=== PATIENT | female | born 1955 | race Caucasian/White ===

== ENCOUNTER 2017-07-02 10:07 | Day surgery (SDC) | payer OTHER ==
[2017-07-02] MEDS ORDERED: LR 1,000 ML IV ONE (10:23)
[2017-07-02] MEDS ORDERED: LIDOCAINE 1% 2 ML INJ ID PRN (10:23)
[2017-07-02 10:45] VITALS: PULSE 89
[2017-07-02] MEDS ORDERED: PROPOFOL/EMULSION 500 MG/50 ML BOTTLE IV ONE (11:40)
--- NOTE | 2017-07-02 11:41 | PDANEPAE ---
ANE History of Present Illness 8 year old female for upper and lower endoscopy (EGD & Colonoscopy). ANE Past Medical History - Cardiovascular History Hx Hypertension: No Hx Arrhythmias: No Hx Chest Pain: No Hx Coronary Artery / Peripheral Vascular Disease: No Hx CHF / Valvular Disease: No Hx Palpitations: No - Pulmonary History Hx COPD: No Hx Asthma/Reactive Airway Disease: No Hx Recent Upper Respiratory Infection: No Hx Oxygen in Use at Home: No Hx Sleep Apnea: No Sleep Apnea Screening Result - Last Documented: Negative - Neurologic History Hx Cerebrovascular Accident: No Hx Seizures: No Hx Dementia: No - Endocrine History Hx Diabetes: No Hypothyroid: No Hyperthyroid: No Obesity: no - Renal History Hx Renal Disorders: No - Liver History Hx Hepatic Disorders: No - Neurological & Psychiatric Hx Hx Neurological and Psychiatric Disorders: No - Cancer History Hx Cancer: Yes Cancer History Comment: breast ca with radiation oct 2015 - Congenital Disorder History Hx Congenital Disorders: No - GI History GERD: no Hx Gastrointestinal Disorders: No Gastrointestinal History Comment: hx of colonoscopies - Other Health History Other Health History: none - Chronic Pain History Chronic Pain: No - Surgical History Prior Surgeries: right breast bx 09/25/12 with nicolas. 10/2015 right breast lumpectomy at [place] with nicolas MICHAELS Review of Systems Review of Systems: - Exercise capacity Exercise capacity: >=4 METS METS (RN): 5 METS ANE Patient History - Allergies Allergies/Adverse Reactions: Penicillins Allergy (Verified 09/04/12 12:56) Rash - Home Medications Home Medications: Arimidex 1 mg (*) 05/15/16 [Last Taken 07/01/17] VITAMIN D 05/15/16 [Last Taken 06/25/17] - NPO status NPO Status: no food or drink >8 hours NPO Since - Liquids (Date): 07/02/17 NPO Since - Liquids (Time): 00:00 NPO Since - Solids (Date): 07/01/17 NPO Since - Solids (Time): 09:00 - Anes Hx Anes Hx: no prior problems - Smoking Hx Smoking Status: Never smoked Marijuana use: No - Alcohol Use Alcohol Use: Rarely - Family Anes Hx Family Anes Hx: neg - N/A Family Hx Anesthesia Complications: none ANE Labs/Vital Signs - Vital Signs Vital Signs: reviewed preoperatively; see RN documention for details Blood Pressure: 126/74 Heart Rate: 89 Respiratory Rate: 12 O2 Sat (%): 97 Height: 177.8 cm Weight: 81.647 kg ANE Physical Exam - Airway Neck exam: FROM Mallampati Score: Class 1 Mouth exam: normal dental/mouth exam - Pulmonary Pulmonary: no respiratory distress - Cardiovascular Cardiovascular: regular rate and rhythym - ASA Status ASA Status: II ANE Anesthesia Plan Anesthesia Plan: GA with mask Total IV Anesthesia: Yes
--- NOTE | 2017-07-02 11:54 | PDGENHP ---
History & Physical Chief Complaint: iron def anemia History of Present Illness: 62 year old female present for evaluation of iron def anemia. has history of complex hepatic flexure polyp Pertinent Past, Social, Family History: PMHx: BC Relevant Physical Exam: HEENT: anicteric. CV: RRR +s1s2. Lungs CTAB. Abd: soft, nt, + bs Cardiorespiratory Assessment: ASA 2
[2017-07-02] MEDS ORDERED: NALOXONE HCL 0.4 MG/ML INJ IVP PRN (12:03)
[2017-07-02] MEDS ORDERED: ONDANSETRON 4 MG/2 ML VIAL IVP PRN (12:03)
[2017-07-02] MEDS ORDERED: LR 500 ML IV PRN (12:03)
[2017-07-02] MEDS ORDERED: fentaNYL 100 MCG/2 ML INJ IVP PRN (12:03)
--- NOTE | 2017-07-02 12:39 | GIREPORT ---
[facility] - Endoscopy Department Patient Name: Lyndsey Montejo Procedure Date: 07/02/2017 11:35 AM Patient Type: Outpatient Attending / ER Physician: Ruben Romero MD Procedure: Upper GI endoscopy Indications: Iron deficiency anemia Patient Profile: 62 year old female presents for evaluation of iron deficiency anemia. Providers: Ruben Romero MD Medicines: Monitored Anesthesia Care Complications: No immediate complications. Estimated blood loss: Minimal. Description of Procedure: After obtaining informed consent, the endoscope was passed under direct vision. Throughout the procedure, the patient's blood pressure, pulse, and oxygen saturations were monitored continuously. The Endoscope was intro duced through the mouth, and advanced to the second part of duodenum. The [facility] er GI endoscopy was accomplished without difficulty. The patient tolerated th e procedure well. Findings: The examined esophagus was normal. A small hiatal hernia was present. Patchy mildly erythematous mucosa without bleeding was found in the gastric body and in the bacilio abdulkadir antrum. Biopsies were taken with a cold forceps for histology. The examined duodenum was normal. Biopsies for histology were taken with a cold forceps for evaluation of celiac disease. Estimated Blood Loss: Estimated blood loss was minimal. Post Op Diagnosis: - Normal esophagus. - Small hiatal hernia. - Erythematous mucosa in the gastric body and antrum. Biopsied. - Normal examined duodenum. Biopsied. - Etiology? No cause of iron deficiency anemia seen. Will proceed with colonoscopy. Recommendation: - Perform a colonoscopy today. - More recommendations on colonoscopy report. - Await pathology results. - Thank you for allowing me Attending Participation: I personally performed the entire procedure. Ruben Romero MD Ruben Romero MD 07/02/2017 12:38:53 PM Number of Addenda: 0 Note Initiated On: 07/02/2017 11:35 AM Total Procedure Duration Time 0 hours 25 minutes 21 seconds [email or web address]
[2017-07-02] MEDS ORDERED: INDOMETHACIN 50 MG SUPP PR PRN (12:42)
[2017-07-02] MEDS ORDERED: NS 500 ML IV SCH (12:45)
--- NOTE | 2017-07-02 13:19 | GIREPORT ---
[facility] Surgical [facility] - Endoscopy Department Patient Name: Lyndsey Montejo Procedure Date: 07/02/2017 11:45 AM Patient Type: Outpatient Attending / IVANA Physician: Ruben Romero MD Procedure: Colonoscopy Indications: Iron deficiency anemia Patient Profile: 62 year old male presents for evaluation of iron deficiency anemia. Providers: Ruben Romero MD Medicines: Monitored Anesthesia Care Complications: No immediate complications. Estimated blood loss: Minimal. Description of Procedure: After obtaining informed consent, the scope was passed under direct vis ion. Throughout the procedure, the patient's blood pressure, pulse, and oxyg en saturations were monitored continuously. The Colonoscope with irrigatio n channel was introduced through the anus and advanced to the terminal il eum. The colonoscopy was performed without difficulty. The patient tolerated the procedure well. The quality of the bowel preparation was good. The term inal ileum, ileocecal valve, appendiceal orifice, and rectum were photograph ed. Findings: The perianal and digital rectal examinations were normal. Pertinent negatives include no palpabl e rectal lesions. Two sessile polyps were found in the hepatic flexure. The polyps were 4 to 5 mm in size. These p olyps were removed with a cold snare. Resection and retrieval were complete. A 2 mm polyp was found in the sigmoid colon. The polyp was sessile. The polyp was removed with a cold biopsy forceps. Resection and retrieval were complete. A 5 mm polyp was found in the sigmoid colon. The polyp was sessile. The polyp was removed with a cold snare. Resection and retrieval were complete. Estimated Blood Loss: Estimated blood loss was minimal. Post Op Diagnosis: - Two 4 to 5 mm polyps at the hepatic flexure, removed with a cold snare. Resected and retrieved . - One 2 mm polyp in the sigmoid colon, removed with a cold biopsy forceps. Resected and retrieve d. - One 5 mm polyp in the sigmoid colon, removed with a cold snare. Resected and retrieved. Recommendation: - Discharge patient to home (with escort). - Resume previous diet. - Continue present medications. - Repeat colonoscopy dependent on pathology. - Await pathology results. - Thank you for allowing me to participate in the care of your patient. Attending Participation: I personally performed the entire procedure. Ruben Romero MD Ruben Romero MD 07/02/2017 1:19:30 PM Number of Addenda: 0 Note Initiated On: 07/02/2017 11:45 AM [email or web address]
[2017-07-02 13:59] VITALS: BP 113/68; RESP 14; O2SAT 99
[2017-07-02 14:04] VITALS: TEMP 98.2
--- NOTE | 2017-07-02 14:58 | POSTANESTH ---
Post Anesthetic Evaluation Cardiovascular Status: Normal, Stable, Similar to Pre-Op Cond Respiratory Status: Normal, Stable, Similar to Pre-op Cond. Level of Consciousness/Mental Status: Can Participate in Eval Pain Control: Adequate, Prn Tx Ordered Nausea/Vomiting Control: Adequate, Prn Tx Ordered Complications Possibly Related to Anesthesia: None Noted
== END 2017-07-02 13:50 | disposition home or self-care (01) ==
LOC: FSGY 10:07
PROVIDERS: ATTEND Internal Medicine Gastroenterology
PROC: 0DB68ZX Excision of Stomach, Via Natural or Artificial Opening Endoscopic, Diagnostic (ICD-10-PCS; principal; 2017-07-02 11:45)
PROC: 0DB98ZX Excision of Duodenum, Via Natural or Artificial Opening Endoscopic, Diagnostic (ICD-10-PCS; principal; 2017-07-02 11:45)
PROC: 0DBN8ZX Excision of Sigmoid Colon, Via Natural or Artificial Opening Endoscopic, Diagnostic (ICD-10-PCS; principal; 2017-07-02 11:45)
PROC: 0DBE8ZX Excision of Large Intestine, Via Natural or Artificial Opening Endoscopic, Diagnostic (ICD-10-PCS; principal; 2017-07-02 11:45)
DX: D50.9 Iron deficiency anemia, unspecified (principal); Z85.3 Personal history of malignant neoplasm of breast
CPT/HCPCS: J2704

== ENCOUNTER → 2017-09-21 | Outpatient (CLI) | payer OTHER | LOC: FIMAGING 15:39 | PROVIDERS: ATTEND Internal Medicine Hematology & Oncology | DX: Z12.31 Encounter for screening mammogram for malignant neoplasm of breast (principal); Z85.3 Personal history of malignant neoplasm of breast; Z80.3 Family history of malignant neoplasm of breast | CPT/HCPCS: G0202 ==

== ENCOUNTER → 2018-04-18 | Outpatient (CLI) | payer OTHER | LOC: FIMAGING 11:18 | PROVIDERS: ATTEND Internal Medicine Hematology & Oncology | DX: Z13.820 Encounter for screening for osteoporosis (principal); M81.0 Age-related osteoporosis without current pathological fracture; Z78.0 Asymptomatic menopausal state; Z85.3 Personal history of malignant neoplasm of breast ==

== ENCOUNTER → 2018-09-25 | Outpatient (CLI) | payer OTHER | LOC: FIMAGING 15:42 | PROVIDERS: ATTEND Internal Medicine Hematology & Oncology | DX: Z12.31 Encounter for screening mammogram for malignant neoplasm of breast (principal); Z85.3 Personal history of malignant neoplasm of breast ==